=== PATIENT | female | born 1975 | race Caucasian/White ===

== ENCOUNTER 2023-08-19 08:40 | Emergency (ER) | payer BC ==
[~2023-08-19] VITALS: Ht 162.6 cm; Wt 90.3 kg
[2023-08-19 08:54] VITALS: O2SAT 100
[2023-08-19 09:37] LABS: BASOPHILS % (AUTO) 0.2 % (0-1); EOSINOPHILS % (AUTO) 0.3 % (0-6); HEMATOCRIT 39.9 % (35.0-45.0); HEMOGLOBIN 13.8 g/dl (12.0-16.0); LYMPHOCYTES # (AUTO) 1.3 X10'3 (1.1-4.8); LYMPHOCYTES % (AUTO) 12.7 % (21-51); MEAN CORPUSCULAR HEMOGLOBIN 31.6 PG (27.0-31.0); MEAN CORPUSCULAR HGB CONC 34.5 g/dL (33.0-36.5); MEAN CORPUSCULAR VOLUME 91.7 FL (78-98); MEAN PLATELET VOLUME 6.2 FL (7.4-10.4); MONOCYTES # (AUTO) 0.4 X10'3 (0-0.9); MONOCYTES % (AUTO) 3.4 % (2-12); NEUTROPHILS # (AUTO) 8.6 X10'3 (1.8-7.7); NEUTROPHILS % (AUTO) 83.4 % (42-75); PLATELET COUNT 406 X10'3 (140-440); RED BLOOD COUNT 4.35 X10'6 (4.20-5.60); RED CELL DISTRIBUTION WIDTH 13.7 % (11.5-14.5); WHITE BLOOD COUNT 10.3 X10'3 (4.5-11.0)
[2023-08-19 09:40] LABS: ALBUMIN 3.8 G/DL (3.4-5.0); ANION GAP 6 (8-16); BLOOD UREA NITROGEN 11 MG/DL (7-18); BUN/CREATININE RATIO 13.4 (10.0-20.0); CALCIUM 9.5 MG/DL (8.5-10.1); CHLORIDE 103 MMOL/L (99-107); CREATININE 0.82 MG/DL (0.40-0.90); GLUCOSE 122 MG/DL (70-104); PRO BRAIN NATRIURETIC PEPTIDE 39 PG/ML (0-125); SODIUM 137 MMOL/L (135-145); eCRCL 74 ML/MIN; eGFR 75 ML/MIN
[2023-08-19 11:10] VITALS: BP 144/84; PULSE 74; RESP 16
[2023-08-19 12:15] LABS: D-DIMER 0.22 MG/L FEU (0-0.50)
[2023-08-19 18:38] VITALS: TEMP 97.8
== END 2023-08-19 18:41 | disposition left against medical advice (07) ==
LOC: ER 08:41
DX: R07.89 Other chest pain (principal); M54.6 Pain in thoracic spine
CPT/HCPCS: 36415; 71045; 80048; 83880; 84484; 85025; 85379; 93005; 99285